=== PATIENT | male | born 1945 | race Caucasian/White ===

== ENCOUNTER 2021-03-27 18:49 | Emergency (ER) | payer MEDICARE, OTHER ==
[2021-03-27 19:05] VITALS: BP 145/70; PULSE 82
[2021-03-27] MEDS: Tetracaine HCl/PF 0.5% 4 ML Bottle EYELF ONE (19:25)
[2021-03-27] MEDS: Sodium Chloride 0.9% 500 ML ONE (19:48)
[2021-03-27] MEDS: Sodium Chloride 0.9% 500 ML IV SCH (19:50)
--- NOTE | 2021-03-27 20:06 | EDM.PDOC ---
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 He wasn't doing anything that would fragment metal; denies using sprays or chemicals; wasn't blowing debris. He doesn't know what might have gotten in his eye but feels like there is something. Left Eye Pain Score (Numeric/FACES): 2 - Related Data Allergies Allergy/AdvReac Type Severity Reaction Status Date / Time No Known Allergies Allergy Verified 03/27/21 19:04 Home Meds: Home Meds Aspirin 81 mg PO DAILY 02/17/14 [History] Levothyroxine [Sythroid] 50 mcg PO DAILY 02/17/14 [History] Simvastatin [Zocor] 20 mg PO BEDTIME 02/17/14 [History] Tamsulosin [Tamsulosin 24 Hr] 0.4 mg PO DAILY 03/27/21 [History] amLODIPine Besylate [Amlodipine Besylate] 10 mg PO DAILY 03/27/21 [History] lisinopriL [Lisinopril] 20 mg PO DAILY 03/27/21 [History] metFORMIN [Glucophage] 500 mg PO DAILY 03/27/21 [History] Past Medical History Cardiovascular History: Reports: High Cholesterol, Hypertension Gastrointestinal History: Reports: None Genitourinary History: Reports: BPH - Past Surgical History Cardiovascular Surgical History: Reports: None GI Surgical History: Reports: Colonoscopy Other GI Surgeries/Procedures: Scope in January 2021, found one polyp which was benign. Next colonoscopy in five years. Male Surgical History: Reports: Other (See Below) Other Male Surgeries/Procedures: hydrocele 1997 Social & Family History - Tobacco Use Tobacco Use Status *Q: Former Tobacco User Years of Tobacco use: 20 Packs/Tins Daily: 1 Used Tobacco, but Quit: Yes Month/Year Tobacco Last Used: 12/1979 ED ROS GENERAL - Review of Systems Review Of Systems: See Below Constitutional: Denies: Fever, Weakness HEENT: Reports: Eye Pain. Denies: Ear Pain, Throat Pain, Vision Change Respiratory: Denies: Shortness of Breath, Cough Cardiovascular: Denies: Chest Pain, Lightheadedness, Syncope GI/Abdominal: Denies: Abdominal Pain, Diarrhea, Vomiting Musculoskeletal: Denies: Neck Pain, Shoulder Pain, Arm Pain, Back Pain, Hand Pain Skin: Denies: Cyanosis, Jaundice, Mottled, Pallor, Diaphoresis Neurological: Denies: Confusion, Seizure, Syncope Psychiatric: Denies: Agitation, Anxiety, Confusion ED EXAM GENERAL W FULL EYE - Physical Exam Exam: See Below Exam Limited By: No Limitations General Appearance: Alert, WD/WN, No Apparent Distress Eye Exam: Bilateral Eye: EOMI, Normal Inspection, PERRL Visual Acuity (R) 20/: 30 Visual Acuity (L) 20/: 30 With Correction: No Eyelids: Bilateral: Normal Appearance Conjunctiva & Sclera: Right: Normal Appearance, Left: Injected Cornea Exam: Left: Examined with Flourescein (No evidence of foreign bodies or abrasion), Bilateral: Normal Appearance Extraocular Movements: Bilateral: Intact Pupillary Size: Bilateral: 3 mm Ears: Normal External Exam, Hearing Grossly Normal Nose: Normal Inspection, No Blood Throat/Mouth: Normal Inspection, Normal Lips, Normal Voice, No Airway Compromise Head: Atraumatic, Normocephalic Neck: Normal Inspection, Full Range of Motion Respiratory/Chest: No Respiratory Distress, Lungs Clear, Normal Breath Sounds, No Accessory Muscle Use Cardiovascular: Regular Rate, Rhythm, No Murmur Back Exam: Full Range of Motion Neurological: Alert, Oriented, Normal Cognition, No Motor/Sensory Deficits Psychiatric: Normal Affect, Normal Mood Skin Exam: Warm, Dry, Intact, Normal Color, No Rash ED EYE w/ Add Procedure - Eye Procedure Alcaine Drops Administered: Yes Eye FB Removal: Other (no FB identified) Eye Irrigated w/ Saline (ccs): 250 (irrigation via Marko lens provided near complete relief of irritation) Course - Vital Signs Last Recorded V/S: Last Vital Signs Temp 97.3 F 03/27/21 19:02 Pulse 82 03/27/21 19:02 Resp 16 03/27/21 19:02 BP 145/70 H 03/27/21 19:02 Pulse Ox 97 03/27/21 19:02 - Orders/Labs/Meds Orders: Active Orders 24 hr Category Date Time Status Sodium Chloride 0.9% [Normal Saline] 500 ml Med 03/27/21 20:00 Active IV .BOLUS Medication Orders Sodium Chloride (Normal Saline) 500 mls @ 500 drops/hr IV .BOLUS CHRISTIANA Last Admin: 03/27/21 19:50 Dose: 500 drops/hr Documented by: GAY Nielsen: Medications Generic Name Dose Route Start Last Admin Trade Name Ana María PRN Reason Stop Dose Admin Sodium Chloride 500 mls @ 500 drops/hr 03/27/21 20:00 03/27/21 19:50 Normal Saline IV 500 drops/hr .BOLUS CHRISTIANA Administration Discontinued Medications Generic Name Dose Route Start Last Admin Trade Name Ana María PRN Reason Stop Dose Admin Sodium Chloride Confirm 03/27/21 19:37 03/27/21 19:48 Normal Saline Administered 03/27/21 19:38 Not Given Dose 500 mls @ as directed .ROUTE .STK-MED ONE Tetracaine HCl 1 ml 03/27/21 19:46 03/27/21 19:25 Tetracaine Hcl/Pf 0.5% 4 Ml Bottle EYELF 03/27/21 19:47 2 drop ASDIRECTED ONE Administration - Re-Assessments/Exams Free Text/Narrative Re-Assessment/Exam: 03/27/21 20:27 Discussed findings and recommendations with patient. Advised follow up with PCP or eye doctor if any problems. Discharged to home in stable condition. Departure - Departure Time of Disposition: 20:17 Disposition: Home, Self-Care 01 Condition: Good Clinical Impression: Irritation of left eye - Discharge Information Instructions: Eye Foreign Body, [id number] Referrals: Lisa Valerio, [employer] [Primary Care Provider] - Additional Instructions: Follow up with your PCP or eye doctor if any problems or worsening. Return to ER if needed. Sepsis Event Note (ED) - Evaluation Sepsis Screening Result: No Definite Risk - Focused Exam Vital Signs: Vital Signs Temp Pulse Resp BP Pulse Ox 03/27/21 19:02 97.3 F 82 16 145/70 H 97 - My Orders Last 24 Hours: My Active Orders 03/27/21 20:00 Sodium Chloride 0.9% [Normal Saline] 500 ml IV .BOLUS - Assessment/Plan Last 24 Hours: My Active Orders 03/27/21 20:00 Sodium Chloride 0.9% [Normal Saline] 500 ml IV .BOLUS
== END 2021-03-27 20:20 | disposition home or self-care (01) ==
LOC: KA.ED 18:49
DX: H57.9 Unspecified disorder of eye and adnexa (principal); E78.00 Pure hypercholesterolemia, unspecified; I10 Essential (primary) hypertension; Z79.82 Long term (current) use of aspirin; Z79.899 Other long term (current) drug therapy; Z87.891 Personal history of nicotine dependence
CPT/HCPCS: 99282; 99283; J7040

== ENCOUNTER 2023-03-15 08:07 | Emergency (ER) | payer MEDICARE, OTHER | END 2023-03-15 09:27 | disposition home or self-care (01) | LOC: KA.ED 08:07 | DX: K59.01 Slow transit constipation (principal); E78.00 Pure hypercholesterolemia, unspecified; I10 Essential (primary) hypertension; N40.0 Benign prostatic hyperplasia without lower urinary tract symptoms; Z79.899 Other long term (current) drug therapy | CPT/HCPCS: 74018; 99283 ==